=== PATIENT | female | born 1955 | race Caucasian/White ===

== ENCOUNTER 2018-07-05 12:05 | Emergency (ER) | payer OTHER ==
--- NOTE | 2018-07-05 12:21 | UC ---
Lower Extremity/Ankle HPI - HPI Summary HPI Summary: hit side of right foot on a baby gait this am---pain and swelling with bruising lateral aspect, patient states it is difficult to weight bear - History of Current Complaint Chief Complaint: UCLowerExtremity Stated Complaint: FOOT INJURY Time Seen by Provider: 07/05/18 12:11 Hx Obtained From: Patient ?: No Onset/Duration: Sudden Onset, Lasting Hours - 2.5 Severity Initially: Moderate Severity Currently: Moderate Aggravating Factor(s): Standing, Ambulation Alleviating Factor(s): Rest, Elevation Able to Bear Weight: Yes - with pain - Allergies/Home Medications Allergies/Adverse Reactions: Allergies Allergy/AdvReac Type Severity Reaction Status Date / Time No Known Allergies Allergy Verified 07/05/18 12:18 Home Medications: Home Medications Alendronate TAB (NF) [Fosamax TAB (NF)] 10 mg PO QID 07/05/18 [History Confirmed 07/05/18] Carbidopa/Levodop 25/100 MG(*) [Sinemet 25/100 TAB(*)] 1 tab PO QID 07/05/18 [ History Confirmed 07/05/18] Montelukast Sodium TAB* [Singulair 10 MG TAB*] 10 mg PO DAILY 07/05/18 [History Confirmed 07/05/18] PMH/Surg Hx/FS Hx/Imm Hx Previously Healthy: No Neurological History: Other Other Neurological History: Parkinsons Cancer History: Breast Cancer - Surgical History Surgical History: Yes Surgery Procedure, Year, and Place: TONSILS & ADENOIDS REMOVED, breast cancer - Family History Known Family History: Positive: None - Social History Occupation: Retired Lives: With Family Alcohol Use: Rare Substance Use Type: None Smoking Status (MU): Never Smoked Tobacco Review of Systems All Other Systems Reviewed And Are Negative: Yes Constitutional: Positive: Negative Skin: Positive: Bruising - lateral right foot Eyes: Positive: Negative ENT: Positive: Negative Respiratory: Positive: Negative Cardiovascular: Positive: Negative Gastrointestinal: Positive: Negative Genitourinary: Positive: Negative Motor: Positive: Negative Neurovascular: Positive: Negative Musculoskeletal: Positive: Arthralgia - right lateral foot, Edema - right lateral foot Neurological: Positive: Negative Psychological: Positive: Negative Is Patient Immunocompromised?: No Physical Exam Triage Information Reviewed: Yes Appearance: Well-Appearing, Well-Nourished, Pain Distress - mild Vital Signs Reviewed: Yes Eye Exam: Normal Eyes: Positive: Conjunctiva Clear ENT Exam: Normal ENT: Positive: Normal ENT inspection, Hearing grossly normal. Negative: Nasal congestion, Nasal drainage, Trismus, Muffled voice, Hoarse voice Dental Exam: Normal Neck exam: Normal Neck: Positive: Supple, Nontender Respiratory Exam: Normal Respiratory: Positive: Chest non-tender, No respiratory distress, No accessory muscle use Cardiovascular Exam: Normal Cardiovascular: Positive: RRR, Pulses Normal, Brisk Capillary Refill Musculoskeletal Exam: Other Musculoskeletal: Positive: Strength Intact, ROM Intact, Edema @ - right lateral foot Neurological Exam: Normal Neurological: Positive: Alert Psychological Exam: Normal Skin Exam: Normal Diagnostics - Radiology No standard instances Radiology Interpretation Completed By: ED Physician - non displased 5th mt fracture, Radiologist Lower Extremity Course/Dx - Course Course Of Treatment: cam, crutches, non-weight bearing, rice, ibuprofen and vicoden for pain-- follow with ortho this week - Differential Dx/Diagnosis Provider Diagnosis: Fx metatarsal-closed Discharge - Sign-Out/Discharge Documenting (check all that apply): Patient Departure All imaging exams completed and their final reports reviewed: Yes - Discharge Plan Condition: Stable Disposition: HOME Prescriptions: Hydrocodone/Acetaminophen [Hydrocodone-Acetamin 5-325 mg] 1 each PO Q6HR PRN #8 tablet MDD 4 PRN Reason: Pain Patient Education Materials: Ibuprofen (By mouth), Foot Fracture in Adults (ED) , R.I.C.E. Treatment (ED) Referrals: José Luis Bergman MD [Medical Doctor] - (3) Additional Instructions: remain non-weight bearing until seen by orthopedic MD - Billing Disposition and Condition Condition: STABLE Disposition: Home
[2018-07-05 12:24] VITALS: BP 129/70
== END 2018-07-05 13:50 | disposition home or self-care (01) ==
LOC: UCEAST 12:05
DX: S92.354A Nondisplaced fracture of fifth metatarsal bone, right foot, initial encounter for closed fracture (principal); G20 Parkinson's disease; X58.XXXA Exposure to other specified factors, initial encounter; Y92.9 Unspecified place or not applicable
CPT/HCPCS: 99213; G0463